=== PATIENT | female | born 1960 | race Hispanic/Latino ===

== ENCOUNTER → 2017-07-13 | Outpatient (CLI) | payer BC ==
--- NOTE | 2017-07-13 14:54 | Diagnostic Imaging Report ---
PROCEDURE:X-RAY RIGHT ELBOW, COMPLETE COMPARISON:None. INDICATIONS:RIGHT ELBOW PAIN FINDINGS: There are no acute, displaced fractures, dislocations, lytic or blastic lesions. Joint spaces are preserved.The bones are well-mineralized. The soft-tissues are unremarkable. CONCLUSION: Unremarkable elbow films. Jaxon Blackman M.D. Dictated by: Jaxon Blackman M.D. on 07/13/2017 at 15:02 Electronically approved by: Jaxon Blackman M.D. on 07/13/2017 at 15:02
--- NOTE | 2017-07-13 14:55 | Diagnostic Imaging Report ---
PROCEDURE:X-RAY RIGHT SHOULDER, COMPLETE COMPARISON:None. INDICATIONS:RIGHT SHOULDER PAIN FINDINGS: There are no fractures, dislocations, lytic or blastic lesions. The bones are well-mineralized. No a.c. separation. Glenohumeral joint is unremarkable. The soft-tissues are unremarkable. Visualized portions of the right lung are clear. CONCLUSION: Unremarkable shoulder films. Jaxon Blackman M.D. Dictated by: Jaxon Blackman M.D. on 07/13/2017 at 15:03 Electronically approved by: Jaxon Blackman M.D. on 07/13/2017 at 15:03
== END ==
LOC: RAD 11:56
PROVIDERS: ATTEND Family Medicine
DX: M25.511 Pain in right shoulder (principal); M25.521 Pain in right elbow

== ENCOUNTER 2017-07-24 15:47 | Emergency (ER) | payer BC, OTHER ==
[~2017-07-24] VITALS: Ht 154.9 cm; Wt 82.6 kg
[2017-07-24] MEDS ORDERED: DEXAMETHASONE SOD PHOS 10 MG/1 ML VIAL INJ ONE (16:15)
[2017-07-24] MEDS ORDERED: HYDROCODONE/APAP 7.5MG-325MG 1 EA TAB PO PRN (16:50)
[2017-07-24] MEDS ORDERED: KETOROLAC TROMETHAMINE 60 MG/2 ML VIAL IM ONE (16:55)
== END 2017-07-24 18:50 | disposition home or self-care (01) ==
LOC: ER 15:47
DX: M54.41 Lumbago with sciatica, right side (principal)
CPT/HCPCS: 99283; J1100; J1885

== ENCOUNTER → 2017-09-18 | Outpatient (CLI) | payer BC ==
--- NOTE | 2017-09-18 18:59 | Diagnostic Imaging Report ---
PROCEDURE:X-RAY RIGHT HEEL COMPARISON:None. INDICATIONS:RIGHT HEEL PAIN FINDINGS: BONES:Mild osteopenia.. No acute, displaced fracture or dislocation. Joint spaces are within normal limits. Moderate anterior and posterior calcaneal enthesophytes. SOFT TISSUES:Negative. OTHER:Negative. CONCLUSION: No acute displaced fracture or dislocation. Moderate anterior and posterior calcaneal enthesophytes. Jaxon Blackman M.D. Dictated by: Jaxon Blackman M.D. on 09/18/2017 at 19:00 Electronically approved by: Jaxon Blackman M.D. on 09/18/2017 at 19:00
== END ==
LOC: RAD 16:26
PROVIDERS: ATTEND Family Medicine
DX: M79.671 Pain in right foot (principal)

== ENCOUNTER → 2025-01-09 | Day surgery (SDC) | payer BC ==
[~2025-01-09] MED LIST: FENTANYL CITRATE/PF 100MCG/2 ML INJ ONE; HYOSCYAMINE SULFATE 0.5 MG/ML INJ ONE; LIDOCAINE HCL 2% LOCAL INJ 5 ML SDV VIAL INJ ONE; PROPOFOL IV EMULSION 10 MG/ML 20 ML VIAL ONE; PROPOFOL IV EMULSION 50 ML IV ONE
[2025-01-09] MEDS: LACTATED RINGER'S 1,000 ML ONE (08:43)
[2025-01-09 08:50] VITALS: TEMP 98.4
[2025-01-09 09:16] VITALS: BP 126/83; PULSE 84; RESP 18; O2SAT 97
[2025-01-09 10:12] LABS: CDIFF AG QUIK CHEK NEGATIVE (NEGATIVE); CDIFF TOX QUIK CHEK NEGATIVE (NEGATIVE)
[2025-01-14 08:06] LABS: ENDOMYSIAL ANTIBODIES, IGA Negative (Negative)
[2025-01-14 09:35] LABS: TISSUE TRANSGLUTAMINASE IGA AB 3 U/mL (0-3)
== END | disposition home or self-care (01) ==
LOC: OR 05:50
PROVIDERS: ATTEND Internal Medicine Gastroenterology
DX: K29.70 Gastritis, unspecified, without bleeding (principal); D12.4 Benign neoplasm of descending colon; D12.5 Benign neoplasm of sigmoid colon; K31.7 Polyp of stomach and duodenum; K52.9 Noninfective gastroenteritis and colitis, unspecified; K20.90 Esophagitis, unspecified without bleeding; K21.9 Gastro-esophageal reflux disease without esophagitis; K62.89 Other specified diseases of anus and rectum; K57.30 Diverticulosis of large intestine without perforation or abscess without bleeding; K64.8 Other hemorrhoids; E78.5 Hyperlipidemia, unspecified; Z01.810 Encounter for preprocedural cardiovascular examination
CPT/HCPCS: 43239; 43251; 45380; 45385; 82784; 83516; 83630; 83993; 86140; 86256; 87045; 87177; 87324; 87328; 87449; 93005; J1980; J2003; J2470; J2704 ×2; J3010; J7121; 45378